=== PATIENT | female | born 1965 | race Caucasian/White ===

== ENCOUNTER 2024-06-05 07:00 | Outpatient (NON) | payer OTHER, SELFPAY | END 2024-06-05 07:01 | disposition home or self-care (01) | LOC: ANHLAB 06-06 09:20 | PROVIDERS: Visit Provider Surgery Plastic and Reconstructive Surgery | DX: N62 Hypertrophy of breast (principal) | CPT/HCPCS: 88305 ==

== ENCOUNTER 2024-06-05 09:18 | Day surgery (SDC) | payer OTHER, SELFPAY ==
[2024-05-20 13:54] VITALS: BMI 20.1
[2024-06-05] VITALS (8 sets, daily range): BP systolic 92–131; BP diastolic 67–89; PULSE 61–82; RESP 12–16; TEMP 36.1–36.4; O2SAT 96–100; BMI 19.8
[2024-06-05] MEDS: LACTATED RINGERS 1,000 ML 30 ML IV CONT ×2 (10:46→14:13)
--- NOTE | 2024-06-05 11:33 | WPDHPUPDATE1 ---
History and Physical Update Update Date/Time: 06/05/24 11:33 History and Physical has been reviewed, including an updated exam of the patient. There are NO changes in the patient's condition. Risks, benefits, and alternatives have been discussed and questions answered. Patient agrees to proceed with procedure.
--- NOTE | 2024-06-05 11:34 | SUR.PREOP ---
FEMALE STAFF MEMBER IN ROOM WHILE DR ROLON MARKED PT. PT ALSO RECEIVED 500CC IVF BOLUS PER DR ROLON ORDER.
--- NOTE | 2024-06-05 11:37 | W.PM.PROC2 ---
Procedure Note - Detailed Date of Procedure 06/05/24 Pre-op Diagnosis Macromastia Post-op Diagnosis Same Procedure Performed Bilateral reduction mammaplasty Surgeon Doc Gibson MD Anesthesia General Findings Inverted T Superior pedicle Tissue removed: Right - 107 grams Left - 147 grams Lipoaspirate: 200cc Description of Procedure She is here today for bilateral breast reduction. Previously and again today the risks, benefits, alternatives were discussed in extensive detail. I wanted her to be very realistic about the risks involved as well as expectations. We discussed aftercare and what to monitor for. She understands we can never guarantee final breast size and there will always be asymmetry. She has only a minimal asymmetry which I explained that we will never get perfect symmetry. Further discussed the limitations on her uniquely and our inability to get exactly her size desired. She had concerns of laxity near the axilla / tail of Maynard and explained this will not be improved. She is interested in no fold; however I explained she will have a fold after and she must be willing to accept this to proceed. I was very upfront and honest about the risks of sensation change and even nipple loss (). Made sure answered all of her questions to her satisfaction today and consent was obtained. She was marked in the preoperative holding area with their verification. The patient was taken to the operating room placed supine on the operating table. Anesthesia was provided by anesthesiology. She was prepped and draped in a standard sterile fashion. A surgical time-out was taken. Stab incisions were made and I tumesced with a tumescent solution. I marked out the nipple-areolar complex at 42 mm. I then de-epithelialized the pedicle. The pedicle was well left well more than 2 cm in thickness. I then removed the inferior portion of the breast as well as the central keel to get shape based on preoperative planning. At this point copiously irrigated with saline solution and verified a strict hemostasis. I reapproximated the pillars using a 2-0 PDS. I tailor tacked the breast into place with jeremy. She was placed in a sitting position. I verified the nipple-areolar complex position based on preoperative markings, intraoperative measurements, and observation which were in full agreement. This nipple-areolar complex was marked at 42 mm in size. Suction lipectomy of lateral breast / chest wall was completed for contouring based on [employer] liposuction techniques utilizing a 5mm basket cannula. This was based on preoperative planning, intraoperative observation, and a rolling pinch test which was in full agreement. I then placed supine and de-epithelialized this. Nipple-areolar complex was inset with 3-0 Monocryl. I closed IMF deep with 1 strattafix. I closed the vertical incision with 3-0 Monocryl in the IMF with 3-0 stratafix. Then everything was closed using a running subcuticular 4-0 Monocryl and tissue glue. A dressing was placed followed by surgical bra. Patient was awoke and taken to PACU without difficulty. All instrument sponge counts were correct at the end of the case. Estimated Blood Loss 100 Drains No Packing No Pathology Yes (Breast tissue bilateral) Complications No immediate complications Condition Stable Disposition PACU
--- NOTE | 2024-06-05 11:39 | WPDANESEPPF ---
Anes - Initial Pre Proc Eval Procedure: Operation Date: 06/05/24 11:45 Proposed Procedures p Bilateral Breast Reduction Mammoplasty - Doc Gibson MD Date/Time: 06/05/24 11:39 Surgeon: Doc Gibson MD Pre Op Diagnosis: Macromastia Patient Data Age: 58 Gender: F Height: 1.57 m Weight: 49.3 kg Last Vital Signs Temp 36.4 C 06/05/24 10:25 Pulse 82 06/05/24 10:25 Resp 16 06/05/24 10:25 BP 117/89 06/05/24 10:25 Pulse Ox 100 06/05/24 10:25 O2 Del Method Room Air 06/05/24 10:25 Allergies Allergy/AdvReac Type Severity Reaction Status Date / Time Sulfa (Sulfonamide Allergy Severe Anaphylactic Verified 06/05/24 10:08 Antibiotics) Shock Home Medications Medication Instructions Recorded Confirmed Type No Home Medications 05/20/24 06/05/24 History Patient hx anesthesia problems: none Family hx anesthesia problems: none Results Review: All pre-operative results and documents have been reviewed as part of the pre-operative evaluation. [facility] Social History Social History Smoking status: Never smoker Second hand tobacco smoke exposure: Yes Substance use type: does not use Living arrangements: with family Spiritual care concerns: No Anes - Eval Final PreProcedure Day of Procedure 06/05/24 11:39 Patient weight: normal Heart: regular rate and rhythm Lungs: clear to auscultation Airway: Mallampati scale class II Neurological: alert and oriented Last oral intake: >/= 8 hours ASA classification: I Emergent: no Anesthetic plan: proceed Anesthesia type and monitoring: general LMA and standard monitoring Results Review: All pre-operative results and documents have been reviewed as part of the pre-operative evaluation. Informed Consent: The patient's anesthetic plan and its attendant risks and benefits were discussed with the patient/family/POA. Questions were solicited and answers provided to the satisfaction of the patient/family/POA.
[2024-06-05] MEDS: SCOPOLAMINE 1 MG PATCH 1 PATCH TRANSDERM (11:40)
[2024-06-05] MEDS: TRANEXAMIC ACID 1,000 MG/10 ML AMPUL 1000 MG IV PUSH (11:47)
[2024-06-05] MEDS: ceFAZolin SODIUM 2 GM/20 ML SW SYRINGE IV PUSH (11:47)
[2024-06-05] MEDS: LACTATED RINGERS IRRIG 1,000 ML, LIDOCAINE HCL 1% LOCAL INJ 50 ML, EPINEPHrine HCL INJ ... INFILTRATE (13:31)
--- NOTE | 2024-06-05 14:46 | WPDANESPN ---
Anes - Prog Note Post-Op Date/Time: 06/05/24 14:46 Cardiovascular status: normal Respiratory status: normal Airway patency: baseline Mental status: baseline Post-Op hydration status: normal Vital Signs: Last Vital Signs Temp 36.4 C L 06/05/24 14:40 Pulse 75 06/05/24 14:40 Resp 15 06/05/24 14:40 BP 92/76 L 06/05/24 14:40 Pulse Ox 98 06/05/24 14:40 O2 Del Method Room Air 06/05/24 14:40 O2 Flow Rate 6 06/05/24 14:25 Pain Score (VAS): 2 I/O: Intake & Output 06/04/24 06/05/24 06/05/24 23:59 07:59 15:59 Intake Total 500 Balance 500 Patient Feedback: Patient satisfied with anesthetic care.
[2024-06-05] MEDS: oxyCODONE HCL (*CRX) 5 MG TAB IR PO (15:30)
== END 2024-06-05 16:10 | disposition home or self-care (01) ==
PROVIDERS: Visit Provider Surgery Plastic and Reconstructive Surgery
PROC: 0HBV0ZZ Excision of Bilateral Breast, Open Approach (ICD-10-PCS; CPT 19318; principal; 2024-06-05 11:45)
DX: N62 Hypertrophy of breast (principal)
CPT/HCPCS: 19318